=== PATIENT | female | born 1940 | race Caucasian/White ===

== ENCOUNTER 2021-09-18 12:35 | Emergency (ER) | payer MEDICARE, OTHER ==
[2021-09-18] MEDS ORDERED: Sodium Chloride 0.9% 10 ML Syringe FLUSH PRN (13:04)
[2021-09-18 13:37] LABS: ANION GAP 6.9 meq/L (7-15)
== END 2021-09-18 14:30 | disposition home or self-care (01) ==
LOC: LL.ED 12:35 → SUPCPDRO 12:35 → LL.ED 14:30
DX: I45.10 Unspecified right bundle-branch block (principal); I44.0 Atrioventricular block, first degree; E78.00 Pure hypercholesterolemia, unspecified; Z88.0 Allergy status to penicillin; Z88.5 Allergy status to narcotic agent; Z88.8 Allergy status to other drugs, medicaments and biological substances; Z79.899 Other long term (current) drug therapy
CPT/HCPCS: 36415; 80053; 84443; 85025; 93005; 93010; 99284; 99285-25